=== PATIENT | female | born 2000 | race Caucasian/White ===

== ENCOUNTER → 2023-11-12 22:31 | Emergency (ER) | payer OTHER, SELFPAY ==
[2023-11-12 22:44] VITALS: BP 116/68
[2023-11-12 23:01] LABS: % Basophils 0.3 % (0-2); % Immature Granulocytes 0.3 % (0-0.5); % Lymphocytes 11.2 % (20.5-51.1); % Monocytes 14.1 % (1.7-9.3); % Neutrophils 74.1 % (42.2-75.2); Absolute Lymphocytes 1.1 10^3/uL (1.2-3.4); Absolute Monocytes 1.4 10^3/uL (0.1-0.6); Absolute Neutrophils 7.5 10^3/uL (1.4-6.5); Hemoglobin 12.8 g/dL (12.0-16.0); Mean Corp Hgb Conc. 34.6 g/dL (33.0-37.0); Mean Corpuscular Hgb 31.1 pg (27.0-31.0); Mean Platelet Volume 9.5 fL (7.4-10.4); Nucleated Red Blood Cells % 0 %; Platelet Count 160 10^3/uL (130-400); Red Blood Cell Count 4.11 10^6/uL (4.20-5.40); Red Cell Dist. Width 12.3 % (11.5-14.5); White Blood Cell Count 10.1 10^3/uL (4.8-10.8)
[2023-11-12 23:10] LABS: Urine Albumin Trace (Neg - Trace); Urine Bilirubin Negative (Negative); Urine Character Clear (Clear); Urine Color Yellow; Urine Glucose Negative (Negative); Urine Ketone Trace (Negative); Urine Leukocyte Trace (Negative); Urine Nitrite Negative (Negative); Urine Occult Blood 3+ (Negative); Urine Specific Gravity 1.015 (<1.030); Urine Urobilinogen Negative (Neg - 1+)
[2023-11-12 23:15] LABS: Lactic Acid 0.8 mmol/L (0.7-2.0)
[2023-11-12 23:17] LABS: HCG, Serum Qualitative Screen Negative
[2023-11-12 23:21] LABS: ALT (SGPT) 11 U/L (0-35); AST (SGOT) 17 U/L (14-36); Albumin 4.2 g/dl (3.5-5.0); Alkaline Phosphatase 60 U/L (38-126); Blood Urea Nitrogen 10 mg/dl (7-17); Calcium 9.2 mg/dl (8.4-10.2); Carbon Dioxide 23 mmol/L (22-30); Chloride 100 mmol/L (98-107); Glucose 130 mg/dl (70-99); Lipase 42 U/L (23-300); Potassium 3.7 mmol/L (3.5-5.1); Sodium 132 mmol/L (135-145); Total Bilirubin 0.5 mg/dl (0.2-1.3); eGFR > 60.00
[2023-11-13 01:17] LABS: Urine Squamous Cell >30 /LPF (Few); Urine White Cell 30-40 /HPF (0-5)
[2023-11-13 01:18] LABS: Urine Bacteria Moderate (Negative)
--- NOTE | 2023-11-13 02:43 | ED.GENMED ---
History of Present Illness
<DIRK Fung - Last Filed: 11/13/23 18:03>
General
Chief Complaint: Fever
Source: patient
Exam Limitations: none
Time Seen by Provider: 11/13/23 02:33
Travel History
Have you had any contact with someone who has COVID-19?: No
Do you have any symptoms of coronavirus? Fever > 100 degrees, chills, cough, shortness of breath, sore throat, loss of taste or smell, muscle aches, or headache?: No
History of Present Illness
History of Present Illness:
This is a 22 year old female that comes in with c/o fever. states that last Saturday she started with Left sided back pain. States that she also started with a fever. States that on Saturday her fever was 103.1 and then it went down to 98.4. Saturday
in the morning she was back up to 102.9 and that continued into Saturday. States that she went to on Saturday and they told her she had blood in her urine. Patient was given an Injection of Rocephin and given Cipro 500mg. States that she went early
in the morning and by 11am on Saturday her temp was 102.9 and 102.7. States that she has had fever with chills, nausea and a headache. Denies any chest pain, SOB, vomiting, diarrhea, abd pain, dizziness, urinary burning or frequency.
Past History
<DIRK Fung - Last Filed: 11/13/23 18:03>
Past History
ED Past Medical History: None
ED Past Surgical History: None
Social History
Tobacco: Non-smoker
Alcohol: Occasional
Personal: Single
Living: with family
Review of Systems
<DIRK Fung - Last Filed: 11/13/23 18:03>
Review of Systems
Constitutional: Reports fever and chills
EENT: Reports no symptoms
Respiratory: Reports no symptoms; Denies cough or trouble breathing
Cardiac: Reports no symptoms; Denies chest pain
ABD/GI: Reports nausea; Denies abdominal pain, vomiting or diarrhea
: Denies dysuria, frequency or urgency
Musculoskeletal: Reports back pain (Left sided back pain)
Skin: Reports no symptoms
Neurological: Reports headache; Denies dizzy
Psychiatric: Reports no symptoms
Phy Exam
<DIRK Fung - Last Filed: 11/13/23 18:03>
General Physical Exam
General Presentation: no apparent distress
General age: appears stated age
General Skin: warm and dry
General Habitus: normal
General Mental: alert
General Hydration: appears well hydrated
ENT Exam
ENT Exam: TM's normal, pharynx normal and neck supple
Eye Exam
Eye Exam: EOMI
Cardiovascular Exam
Cardiovascular Exam: regular rate/rhythm, no edema, no murmur and normal peripheral pulses
Pulmonary Exam
Pulmonary Exam: lungs clear, no respiratory distress, no rales, chest non tender, no crackles, no rhonchi, no wheezing and no cough
Gastrointestinal Exam
Gastrointestinal Exam: normal bowel sounds, soft, no organomegaly, no pulsatile mass, non distended and tender (Very slight left sided tenderness with palpation)
Musculoskeletal Exam
Musculoskeletal Exam: full ROM and no edema
Skin Exam
Skin Exam: normal color, warm/dry, no rash and no petechia
Psychiatric Exam
Psychiatric Exam: normal mood/affect
Course
<DIRK Fung - Last Filed: 11/13/23 18:03>
Orders/Labs/Results
Orders:
Orders
11/12/23 22:50
Test Result ONCE
11/12/23 22:55
CBC/With Diff [Complete Blood Count/With Diff] Urgent
CMP [Comprehensive Metabolic Panel] Urgent
HCG, Serum Qualitative Screen Urgent
Lactic Acid Urgent
Lipase Urgent
11/12/23 22:59
Urinalysis Reflex To Culture Urgent
Date Specimen was Collected: 11/12/23
Time Specimen was Collected: 22:51
Urine Microscopic Reflex Cult Urgent
Urine Culture Urgent
[place]OR[place] Source: U
Specimen Description:
Date Specimen was Collected: 11/12/23
Time Specimen was Collected: 22:51
11/13/23 02:49
COVID-19 Antigen Urgent
Source: Nasal Swab
Urinalysis Reflex To Culture Urgent
Date Specimen was Collected: 11/13/23
Time Specimen was Collected: 02:45
Urine Microscopic Reflex Cult Urgent
Influenza A+B Rapid Molecular Urgent
[place]OR[place] Source: Nasal Swab
Specimen Description:
11/13/23 03:19
CT Abd/pel Without Iv Or Oral Urgent
Comment:
Reason For Exam: Left back pain, blood in urine
11/13/23 04:47
Ketorolac [Toradol] 30 mg IM NOW STA
Abnormal Lab Results
11/12/23 11/12/23 11/13/23
22:55 22:59 02:49
RBC 4.11 L 10^6/uL
(4.20-5.40)
MCH 31.1 H pg
(27.0-31.0)
Absolute Neuts (auto) 7.5 H 10^3/uL
(1.4-6.5)
Absolute Lymphs (auto) 1.1 L 10^3/uL
(1.2-3.4)
Absolute Monos (auto) 1.4 H 10^3/uL
(0.1-0.6)
Lymphocytes % 11.2 L %
(20.5-51.1)
Monocytes % 14.1 H %
(1.7-9.3)
Sodium 132 L mmol/L
(135-145)
Glucose 130 H mg/dl
(70-99)
Urine Ketones Trace A 1+ A
(Negative) (Negative)
Ur Occult Blood Reflex 3+ A 2+ A
(Negative) (Negative)
Leukocyte Esterase Rfl Trace A
(Negative)
Urine RBC 3-6 A /HPF 3-6 A /HPF
(0-2) (0-2)
Urine WBC (Reflex) 30-40 A /HPF
(0-5)
Urine Bacteria (Reflex) Moderate A Few A
(Negative) (Negative)
11/12/23 22:55
11/12/23 22:55
Sodium slightly low. Glucose nonfasting. Urine contaminated as >30 Squamous cells (will repeat urine), Lactic acid normal. Lipase normal at 42, HCG negative, negative for COVId and influenza
Repeat urine negative for infection.
Vital Signs
Initial and Last Documented VS:
Initial Vital Signs
Temp Pulse Resp BP Pulse Ox
99.9 F 118 19 116/68 97
11/12/23 22:44 11/12/23 22:44 11/12/23 22:44 11/12/23 22:44 11/12/23 22:44
Last Documented Vital Signs
Temp Pulse Resp BP Pulse Ox
100.7 F H 103 19 110/67 97
11/13/23 03:17 11/13/23 03:17 11/12/23 22:44 11/13/23 03:17 11/12/23 22:44
Henriettalt;Cody Kerns DO - Last Filed: 11/13/23 06:30>
Orders/Labs/Results
Orders:
Orders
11/12/23 22:50
Test Result ONCE
11/12/23 22:55
CBC/With Diff [Complete Blood Count/With Diff] Urgent
CMP [Comprehensive Metabolic Panel] Urgent
HCG, Serum Qualitative Screen Urgent
Lactic Acid Urgent
Lipase Urgent
11/12/23 22:59
Urinalysis Reflex To Culture Urgent
Date Specimen was Collected: 11/12/23
Time Specimen was Collected: 22:51
Urine Microscopic Reflex Cult Urgent
Urine Culture Urgent
[place] Source: U
Specimen Description:
Date Specimen was Collected: 11/12/23
Time Specimen was Collected: 22:51
11/13/23 02:49
COVID-19 Antigen Urgent
Source: Nasal Swab
Urinalysis Reflex To Culture Urgent
Date Specimen was Collected: 11/13/23
Time Specimen was Collected: 02:45
Urine Microscopic Reflex Cult Urgent
Influenza A+B Rapid Molecular Urgent
[place] Source: Nasal Swab
Specimen Description:
11/13/23 03:19
CT Abd/pel Without Iv Or Oral Urgent
Comment:
Reason For Exam: Left back pain, blood in urine
11/13/23 04:47
Ketorolac [Toradol] 30 mg IM NOW STA
Abnormal Lab Results
11/12/23 11/12/23 11/13/23
22:55 22:59 02:49
RBC 4.11 L 10^6/uL
(4.20-5.40)
MCH 31.1 H pg
(27.0-31.0)
Absolute Neuts (auto) 7.5 H 10^3/uL
(1.4-6.5)
Absolute Lymphs (auto) 1.1 L 10^3/uL
(1.2-3.4)
Absolute Monos (auto) 1.4 H 10^3/uL
(0.1-0.6)
Lymphocytes % 11.2 L %
(20.5-51.1)
Monocytes % 14.1 H %
(1.7-9.3)
Sodium 132 L mmol/L
(135-145)
Glucose 130 H mg/dl
(70-99)
Urine Ketones Trace A 1+ A
(Negative) (Negative)
Ur Occult Blood Reflex 3+ A 2+ A
(Negative) (Negative)
Leukocyte Esterase Rfl Trace A
(Negative)
Urine RBC 3-6 A /HPF 3-6 A /HPF
(0-2) (0-2)
Urine WBC (Reflex) 30-40 A /HPF
(0-5)
Urine Bacteria (Reflex) Moderate A Few A
(Negative) (Negative)
11/12/23 22:55
11/12/23 22:55
Vital Signs
Initial and Last Documented VS:
Initial Vital Signs
Temp Pulse Resp BP Pulse Ox
99.9 F 118 19 116/68 97
11/12/23 22:44 11/12/23 22:44 11/12/23 22:44 11/12/23 22:44 11/12/23 22:44
Last Documented Vital Signs
Temp Pulse Resp BP Pulse Ox
100.7 F H 103 19 110/67 97
11/13/23 03:17 11/13/23 03:17 11/12/23 22:44 11/13/23 03:17 11/12/23 22:44
<DIRK Fung - Last Filed: 11/13/23 18:03>
MDM/Problems Addressed
Differential Diagnosis Includes:
Pyelonephritis, COVID, Influenza, Renal calculus
MDM/Problems Addressed:
This is a 22 year old female that comes in with c/o left back pain. States that she started with a fever on Saturday and this has continued. State that she went to Urgent care on Saturday and she was told that she had blood in her urine and they gave
her Rocephin and put her on Cipro. States that she is still running a fever.
Will check labs, repeat urine, and check for COVID and influenza.
Back to see patient. Explained that the second urine does have some blood but is negative fof Nitrite and Leukocyte esterase. Await the bottom of the urine. However, is positive for blood so will get CT scan to r/o renal calculus
Chronic conditions affecting care:
NA
Acute Exacerbation and/or Progression of Chronic Illness:
NA
<DIRK Fung - Last Filed: 11/13/23 18:03>
*Radiology
Radiology exam reviewed: radiology read reviewed (CT-Small amount of pelvic free fluid, which may be physiologic. Mild wall thickening of the urinary bladder wall, which may be related to under distention or cystitis. Bilateral pars defects at L5,
without significant spondylolisthesis. t)
*Pulse Oximetry
Patient hypoxic: no
*EKG
Interpreted by ED Provider?: NA
Rate: EKG- N/A
*[employer] [employer] Interpretation
Rate: [employer]- N/A
*Critical Care Note
Total Time (30-74mins, 75-104mins- exclusive of procedures): Not Applicable
ED Attending Note
<DIRK Fung - Last Filed: 11/13/23 18:03>
-
Portions of this chart may have been created with voice recognition software.� Occasional wrong word or��sound alike� substitutions may have occurred due to the inherent limitations of voice recognition software.
<Cody Kerns DO - Last Filed: 11/13/23 06:30>
ED Attending Note
Patient seen and examined by attending physician: Yes
I performed the substantive portion of visit, reviewed & personally made and approve the management plan that is documented in note by myself or GALINA.: Yes
ED Attending Note:
22-year-old female presents with fever and back pain. She has no urinary issues. Was started on ciprofloxacin in urgent care for possible pyelonephritis. Was told to come to the emergency department if fever came back. Patient did have return of
fever so she came to the ER for evaluation. Dry CT scan showed possible pyelonephritis with cystitis. Patient already took 2 doses ciprofloxacin and has a 10-day supply. She will continue that medication. Discussed with patient and father about
return to ER instructions. She has no further questions at this time. Patient discharged in improved condition
Discharge Plan
Departure
Patient Disposition: Home (Routine Discharge)
Date of Disposition: 11/13/23
Time of Disposition: 06:28
Patient with high blood pressure during this ER visit?: Yes
Condition: Good
Discharge Problem:
Cystitis
Instructions: Fever, Adult (DC), Urinary Tract Infection, Adult ED
Referrals:
[facility] [Outside]
Cody Avelar MD [Active] - As needed
Activity Restrictions/Additional Instructions:
It was a pleasure meeting you and taking part in your care. We hope for your continued healing and wellness.
Please read discharge instructions in their entirety. However, they are for general education and may not describe your exact diagnosis at discharge. Information on your ER visit and medical conditions were discussed with you along with appropriate
follow up information...
If indicated, please take your medications as instructed and indicated on discharge paperwork.
Please schedule a follow up appointment as directed. Call to schedule an appointment
Please return to the emergency department with ANY change in, persisting, or worsening of symptoms. If any of your symptoms do not improve, or persist, or become more severe within 6-12 hours, please return to the emergency department for further
care.
Please return to the emergency department if you develop a headache, neck pain/stiffness, fever greater than 100.4F, chest pain, shortness of breath, persistent nausea, vomiting, slurred speech, difficulty walking, numbness/tingling, weakness, signs
of infection or any other symptoms that are worrisome to you.
If you have any questions or concerns please do not hesitate to call the Hospital at or E-mail me directly at [email or web address]
Interventions
Interventions:
ED- Fall Risk Assessment Last Done: 11/13/23 04:06
ED- Neurological Assessment Last Done: 11/13/23 04:06
ED-Skin Assessment Last Done: 11/13/23 04:06
Discharge Date and Time
Print Language: CZECH
[2023-11-13 03:12] LABS: Urine Albumin Negative (Neg - Trace); Urine Bilirubin Negative (Negative); Urine Character Clear (Clear); Urine Color Yellow; Urine Glucose Negative (Negative); Urine Ketone 1+ (Negative); Urine Leukocyte Negative (Negative); Urine Nitrite Negative (Negative); Urine Occult Blood 2+ (Negative); Urine Specific Gravity 1.005 (<1.030); Urine Urobilinogen Negative (Neg - 1+)
[2023-11-13 03:17] VITALS: BP 110/67
[2023-11-13 03:22] LABS: COVID-19 Antigen Negative (Negative)
[2023-11-13 03:59] LABS: Urine Bacteria Few (Negative); Urine Squamous Cell >30 /LPF (Few)
[2023-11-13] MEDS: TORADOL 30 MG IM (04:57)
== END | disposition home or self-care (01) ==
LOC: EMR 22:31
PROVIDERS: Clinical Nurse Specialist Family Health; Emergency Medicine; EMERGENCY PHYSICIAN Student in an Organized Health Care Education/Training Program; FAMILY PHYSICIAN Family Medicine
DX: N30.90 Cystitis, unspecified without hematuria (principal)
CPT/HCPCS: 99284; 96372; 74176; 80053; 81003; 81015; 83605; 83690; 84703; 85025; 87086; 87502; 87811